=== PATIENT | male | born 1990 | race Caucasian/White ===

== ENCOUNTER 2024-02-23 23:04 | Emergency (ER) | payer SELFPAY ==
[~2024-02-23] VITALS: Ht 175.3 cm; Wt 91.0 kg
[2024-02-23 23:58] VITALS: BP 113/80; PULSE 87; RESP 18; TEMP 98.3; O2SAT 100
[2024-02-24 00:36] LABS: CHLORIDE 104 mEq/L (98-107); POTASSIUM 3.9 mEq/L (3.5-5.1); SODIUM 140 mEq/L (136-145)
[2024-02-24 00:37] LABS: CALCIUM 9.3 mg/dL (8.7-10.4); CARBON DIOXIDE 31 mEq/L (21-32)
[2024-02-24 00:39] LABS: CLARITY URINE CLOUDY (CLEAR); COLOR URINE YELLOW (YELLOW); GLUCOSE URINE NEGATIVE (NEGATIVE); KETONES URINE TRACE (NEGATIVE); LEUKOCYTE ESTERASE URINE NEGATIVE (NEGATIVE); NITRITE URINE NEGATIVE (NEGATIVE); OCCULT BLOOD URINE NEGATIVE (NEGATIVE); PROTEIN URINE NEGATIVE (NEGATIVE); SPECIFIC GRAVITY URINE 1.029 (1.005-1.030)
[2024-02-24 00:39] LABS: BASOPHILS % 0.5 % (0.0-2.0); DIFFERENTIAL COMMENT 0; EOSINOPHILS % 1.6 % (0.0-5.0); HEMATOCRIT. 42.3 % (42.0-52.0); HEMOGLOBIN. 13.6 g/dL (14.0-18.0); MEAN CORPUSCULAR HEMOGLOBIN 24.5 pg (28.0-32.0); MEAN CORPUSCULAR HGB CONC 32.2 g/dL (31.0-37.0); MEAN PLATELET VOLUME 8.7 fl (7.4-10.4); MONOCYTES % 5.7 % (2.0-8.0); NEUTROPHILS % 78.2 % (40.0-76.0); PLATELET 236 x1000/uL (130-400); RED BLOOD CELL COUNT 5.56 mill/uL (4.7-6.1); RED CELL DISTRIBUTION WIDTH 15.6 % (11.6-14.6); WHITE BLOOD COUNT 13.1 x1000/uL (4.5-11.0)
[2024-02-24 00:42] LABS: CREATININE 0.8 mg/dL (0.6-1.3); GLUCOSE 106 mg/dL (70-105); UREA NITROGEN BLOOD 12 mg/dL (9-23)
[2024-02-24 00:44] LABS: ALANINE AMINOTRANSFERASE 21 IU/L (10-49); ALBUMIN 4.8 g/dL (3.2-4.8); ASPARTATE AMINOTRANSFERASE 16 IU/L (<34); BILIRUBIN TOTAL 0.4 mg/dL (0.1-1.0)
[2024-02-24 00:45] LABS: PROTEIN TOTAL 8.2 g/dL (6.0-8.3)
[2024-02-24 00:47] LABS: BILIRUBIN DIRECT < 0.1 mg/dL (<=3.0)
[2024-02-24] MEDS ORDERED: MAGNESIUM/ALUMINUM HYDROXIDE/SIMETHICONE 30ML UDC PO STA (03:17)
[2024-02-24] MEDS ORDERED: DICYCLOMINE 10 MG/5 ML ORAL SYR PO STA (03:17)
[2024-02-24] MEDS: DICYCLOMINE HCL 10MG CAPSULE PO NR (03:30)
[2024-02-24] MEDS: MAGNESIUM/ALUMINUM HYDROXIDE/SIMETHICONE 30ML UDC PO NR (03:45)
[2024-02-24 04:15] LABS: AMORPHOUS SEDIMENT URINE 1+ /lpf; BACTERIA URINE NONE SEEN; RBC URINE 0-2 /hpf (0-2); SQUAMOUS EPITHELIAL CELL URINE NONE SEEN /lpf (RARE/1+); WBC URINE 0-2 /hpf (0-2)
[2024-02-24] MEDS ORDERED: OMEP40CA20 MT (04:53)
== END 2024-02-24 05:26 | disposition home or self-care (01) ==
LOC: ER 23:04
DX: R10.33 Periumbilical pain (principal)
CPT/HCPCS: 36415; 74176; 80048; 80076; 81003; 85025; 99284

== ENCOUNTER 2025-03-11 18:41 | Emergency (ER) | payer MEDICAID, OTHER ==
[~2025-03-11] VITALS: Ht 172.7 cm; Wt 92.0 kg
[~2025-03-11 18:41] MED LIST: OMEP40CA20 MT
[2025-03-11 18:47] VITALS: O2SAT 98
[2025-03-11] MEDS: LIDOCAINE HCL 1% 20ML VIAL INL ONE (21:15)
[2025-03-11] MEDS: IBUPROFEN 600MG TABLET PO ONE (21:52)
[2025-03-11] MEDS: HYDROCODONE/ACETAMINOPHEN 5/325MG TABLET PO ONE (22:11)
[2025-03-11] MEDS ORDERED: IBUP-2028 MT (22:44)
[2025-03-11] MEDS ORDERED: BO1 TP (22:44)
[2025-03-11] MEDS: BACITRACIN ZINC OINT UDPKT TOP ONE (22:51)
[2025-03-11 23:02] VITALS: BP 136/81; PULSE 65; RESP 15; TEMP 36.7; O2SAT 98
== END 2025-03-11 23:05 | disposition home or self-care (01) ==
LOC: ER 18:41
DX: S61.011A Laceration without foreign body of right thumb without damage to nail, initial encounter (principal); Z79.899 Other long term (current) drug therapy; W26.8XXA Contact with other sharp object(s), not elsewhere classified, initial encounter; Y93.89 Activity, other specified; Y92.89 Other specified places as the place of occurrence of the external cause; Y99.8 Other external cause status
CPT/HCPCS: 73130; 12001; 99283; J2003; Z7610